=== PATIENT | female | born 1950 | race Caucasian/White ===

== ENCOUNTER 2019-07-22 07:54 | Outpatient (CLI) | payer OTHER | END 2019-07-22 10:07 | disposition home or self-care (01) | LOC: MRI 07:54 | DX: C20 Malignant neoplasm of rectum (principal); K57.30 Diverticulosis of large intestine without perforation or abscess without bleeding; D12.8 Benign neoplasm of rectum | CPT/HCPCS: 72197 ==

== ENCOUNTER 2019-08-17 06:15 | Day surgery (SDC) | payer OTHER ==
[~2019-08-17 06:15] MED LIST: AVAPRO300 MG PO; TOPROL XL100 M1 PO
[2019-08-17] MEDS ORDERED: ULTRACET PO (09:00)
== END 2019-08-17 13:19 | disposition home or self-care (01) ==
LOC: CIR.AMB 06:15 → ADM 08:00 → EDBD 08:00 → CIR.AMB 11:00
DX: C20 Malignant neoplasm of rectum (principal)
CPT/HCPCS: 36561; C1778

== ENCOUNTER 2019-12-13 13:17 | Inpatient (IN) | payer OTHER ==
[~2019-12-13] VITALS: Ht 157.5 cm; Wt 74.8 kg
[~2019-12-13 13:17] MED LIST changes: +ULTRACET PO
[2019-12-28] MEDS ORDERED: DIOVAN320 MG PO (15:57)
[2020-01-08] MEDS ORDERED: LEVAQUIN500 MG PO (13:46)
[2020-01-08] MEDS ORDERED: IMODIUM A-D2 M2 PO (13:46)
== END 2020-01-08 15:35 | disposition home or self-care (01) | DRG 331 ==
LOC: SURH 01-04 07:00 → O/R 01-04 07:01 → SURH 01-04 10:30
PROVIDERS: ADMIT Surgery; ATTEND Surgery
PROC: 0D1B4Z4 Bypass Ileum to Cutaneous, Percutaneous Endoscopic Approach (ICD-10-PCS; 2020-01-04)
PROC: 0DJD8ZZ Inspection of Lower Intestinal Tract, Via Natural or Artificial Opening Endoscopic (ICD-10-PCS; 2020-01-04)
PROC: 0DTP4ZZ Resection of Rectum, Percutaneous Endoscopic Approach (ICD-10-PCS; principal; 2020-01-04 07:00)
DX: C20 Malignant neoplasm of rectum (principal); I10 Essential (primary) hypertension; Z20.828 Contact with and (suspected) exposure to other viral communicable diseases